=== PATIENT | male | born 1995 | race Caucasian/White ===

== ENCOUNTER → 2018-08-05 12:25 | Outpatient (CLI) | payer BC, SELFPAY ==
[2018-08-05 13:19] VITALS: BP 149/87; PULSE 84; RESP 18; TEMP 36.7; O2SAT 98; BMI 28.9
--- NOTE | 2018-08-05 14:06 | WMO.HTC_ITS ---
Problem List (1) Hemophilia B in male Status: Chronic Subjective Date of Service:: 08/05/18 Chief Complaint: F/u for Hemophilia B. History of Present Illness: 22y.o.man with Hemophilia B, baseline level was 1%. Comes to [facility] for the 1st time. He is on Alprolix weekly. No bleeding episodes noted in the last yr. Health History: Past Medical History (Last Updated 08/05/18 @ 13:13 by Karina Le) Hemophilia B (Acute) Family History (Last Updated 08/05/18 @ 13:15 by Karina Le) Mother Heart disease Grandmother Heart disease Mother Hypertension Allergies/Adverse Reactions: Allergy/AdvReac Type Severity Reaction Status Date / Time aspirin Allergy Severe Unknown Verified 08/05/18 13:17 Risk Factors Social History Smoking Status Former smoker Tobacco Risk Data: Tobacco Risk Smoking Status Former smoker Type of tobacco: Smokeless tobacco usage: Items/Day: Year started: Years used: 1 Counseled to quit/cut down: Reason for no counseling performed: Reason for no pharmacotherapy: Tobacco use comments: Passive smoke exposure: Yes Substance Risk Drug use: No Caffeine use [drinks/day]: 1 Alcohol use: Yes Type of alcohol: occassionally Drinks per day: Has patient felt the need to cut down: 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 been annoyed by complaints: 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 felt guilty about drinking: 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 needed an 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: Comments: Review of Systems Constitutional:: Denies: Fever, Sweats, Weight loss, Appetite change, Chills Cardiovascular:: Denies: Chest pain, Palpitations, Dyspnea on exertion, Orthopnea, PND, Shortness of breath Respiratory: Denies: Cough, Hemoptysis, Shortness of Breath, Wheezing Gastrointestinal:: Denies: Abdominal pain, Nausea, Vomiting, Diarrhea, Constipation, Hematochezia Genitourinary: Denies: Dysuria, Hematuria, 15, Flank pain Musculoskeletal:: Denies: Back pain, Myalgia, Arthralgia Skin: Denies: Rash, Skin Changes, Wounds Neurological:: Denies: Headache, Dizziness, Visual changes, Tinnitus, Hearing loss Psychiatric: Denies: Anxiety, Depression, Homicidal Ideations, Suicidal Ideations Vital Signs Height 5 ft 11 in Weight: 94.075 kg Weight in Pounds 207.4 lbs Pulse Ox 98 Temperature 98.1 F Pulse Rate 84 Respiratory Rate 18 Blood Pressure 149/87 Blood Pressure Position Sitting - Physical Exam General: Alert, Oriented x3, No apparent distress HEENT: Atraumatic, PERRLA, EOMI, Normocephalic Oropharynx:: Dry mucosa Neck:: Supple, Trachea midline. Negative for: JVD, bilateral Cardiac:: Regular rate, Regular rhythm, Normal S1, Normal S2. Negative for: Murmur Lungs: Clear to auscultation, Excusion symmetrical. Negative for: Rhonchi, Wheezes Abdomen:: Bowel sounds x 4, Soft, Non-tender, Non-distended. Negative for: Hepatosplenomegaly Extremities:: Negative for: Cyanosis, Edema Neurological: Neuro grossly intact Skin:: Negative for: Lesions, Rash, Petechiae, Ecchymosis Psychiatric:: Appropriate affect, Euthymic Lymphatics:: Negative for: Cervical lymphadenopathy, Supraclavicular lymphadenopathy, Axillary lymphadenopathy Therapy ROM Screening - Subjective Subjective:: factor weekly -. states no concerns - Objective Right shoulder flex:: 155 Left shoulder flex:: 155 Right shoulder extension:: 50 Left shoulder extension:: 50 Right elbox flex/ext:: 140/0 Left elbox flex/ext:: 140/0 Right elbow circumference:: 31cm Left elbow circumference:: 30cm Right forearm sup/pron:: WNL Left forearm sup/pron:: WNL Right knee flexion:: 120 Left knee flexion:: 120 Right knee circumference:: 42cm Left knee circumference:: 42cm Right ankle dorsiflexion:: 20 Left ankle dorsiflexion:: 20 Right ankle Plan-flex:: 45 Left ankle Plan-flex:: 45 Right ankle circumference:: NT boots on Left ankle circumference:: NT boots on Right hip flexion:: 90 Left hip flexion:: 90 Right hip extension:: 15 Left hip extension:: 15 - Assessment Assessment:: PT demo all ROM WNL- no concerns at this time Assessment and Plan Hemophilia B, clinically stable. Plan is to continue Alprolix weekly. To call if new problems arise. RTC 1 yr. Primary Care Provider: YANCY Grissom Referring Provider: Angel Martel MD
== END ==
PROVIDERS: Family Provider Nurse Practitioner Family; PCP Nurse Practitioner Family; Visit Provider Internal Medicine Medical Oncology
DX: D67 Hereditary factor IX deficiency (principal)

== ENCOUNTER → 2018-08-22 11:40 | Outpatient (CLI) | payer OTHER, BC, SELFPAY ==
--- NOTE | 2018-08-22 11:47 | CT_ITS ---
STUDY: CT ABDOMEN WITH CONTRAST REASON FOR EXAM: Male, 22 years old. Umbilical swelling x4 days RADIATION DOSAGE (If Supplied By Facility): CTDIvol = ( 15.77 ) mGy, DLP = ( 722.51 ) mGycm TECHNIQUE: Transaxial images were obtained post I.V. administration of 100 ml of Isovue 300 contrast, and oral contrast. Sagittal and coronal images were reconstructed. Individualized dose optimization techniques were used for this CT. COMPARISON: None. FINDINGS: The visualized lung bases are unremarkable. The visualized portions of the heart are within normal limits. Normal liver. Normal gallbladder and extrahepatic biliary system. Normal spleen. Normal pancreas. Normal bilateral adrenal glands. Normal right kidney. Normal left kidney. Normal visualized stomach. Visualized small and large bowel are within normal limits. The appendix is visualized and appears normal. Normal abdominal aorta. Normal inferior vena cava. Normal retroperitoneum. Normal abdominal wall. Normal osseous structures. CT/Abdomen WITH IV Contrast IMPRESSION: No acute finding Electronically Signed: Feliz Phillip DO at 12:33 EST Tel , Service support ,
== END ==
PROVIDERS: Family Provider Nurse Practitioner Family; PCP Nurse Practitioner Family; Referring Provider Emergency Medicine; Visit Provider Emergency Medicine
DX: R10.9 Unspecified abdominal pain (principal)
CPT/HCPCS: 74160; Q9967

== ENCOUNTER → 2019-07-28 09:16 | Outpatient (CLI) | payer MEDICAID, SELFPAY ==
[2019-07-28 09:39] VITALS: BP 122/82; PULSE 78; RESP 14; TEMP 36.6; O2SAT 96; BMI 29.5
--- NOTE | 2019-07-28 10:06 | WMO.HTC_ITS ---
Problem List (1) Hemophilia B in male Status: Chronic Subjective Date of Service:: 07/28/19 Chief Complaint: F/u for Hemophilia B. History of Present Illness: 23y.o.man with Hemophilia B, baseline level was 1%. Comes to [place] for follow up. He is on Alprolix weekly. No bleeding episodes noted in the last yr. No dental evaluation in the last yr. Health History: Past Medical History (Last Reviewed 07/28/19 @ 09:38 by Sandra Rubio) Hemophilia B (Acute) Past Surgical History (Last Reviewed 07/28/19 @ 09:38 by Sandra Rubio) No history of previous surgery (Acute) Family History (Last Reviewed 07/28/19 @ 09:38 by Sandra Rubio) Mother Heart disease Grandmother Heart disease Mother Hypertension Social History Social History: No changes Smoking Status Former smoker Allergies/Adverse Reactions: Allergy/AdvReac Type Severity Reaction Status Date / Time aspirin Allergy Severe bleeding Verified 08/05/18 16:02 Risk Factors Social History Social History: No changes Smoking Status Former smoker Tobacco Risk Data: Tobacco Risk Smoking Status Former smoker Type of tobacco: Smokeless tobacco usage: Items/Day: Year started: Years used: Counseled to quit/cut down: Reason for no counseling performed: Reason for no pharmacotherapy: Tobacco use comments: Passive smoke exposure: Substance Risk Drug use: No Caffeine use [drinks/day]: 1 Alcohol use: No Type of alcohol: Drinks per day: Has patient felt the need to cut down: 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 been annoyed by complaints: 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 felt guilty about drinking: 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 needed an 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 mail 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 in 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: Comments: Review of Systems Constitutional:: Denies: Fever, Sweats, Weight loss, Appetite change, Chills Cardiovascular:: Denies: Chest pain, Palpitations, Dyspnea on exertion, O rthopnea, PND, Shortness of breath Respiratory: Denies: Cough, Hemoptysis, Shortness of Breath, Wheezing Gastrointestinal:: Denies: Abdominal pain, Nausea, Vomiting, Diarrhea, Constipation, Hematochezia Genitourinary: Denies: Dysuria, Hematuria, 15, Flank pain Musculoskeletal:: Denies: Back pain, Myalgia, Arthralgia Skin: Denies: Rash, Skin Changes, Wounds Neurological:: Denies: Headache, Dizziness, Visual changes, Tinnitus, Hearing loss Psychiatric: Denies: Anxiety, Depression, Homicidal Ideations, Suicidal Ideations Vital Signs Height 5 ft 10 in Weight: 93.44 kg Weight in Pounds 206.0 lbs Pulse Ox 96 Temperature 98 F Pulse Rate 78 Respiratory Rate 14 Blood Pressure 122/82 Blood Pressure Position Sitting - Physical Exam General: Alert, Oriented x3, No apparent distress HEENT: Atraumatic, PERRLA, EOMI, Normocephalic Oropharynx:: Dry mucosa Neck:: Supple, Trachea midline. Negative for: JVD, bilateral Cardiac:: Regular rate, Regular rhythm, Normal S1, Normal S2. Negative for: Murmur Lungs: Clear to auscultation, Excusion symmetrical. Negative for: Rhonchi, Wheezes Abdomen:: Bowel sounds x 4, Soft, Non-tender, Non-distended. Negative for: Hepatosplenomegaly Extremities:: Negative for: Cyanosis, Edema Neurological: Neuro grossly intact Skin:: Negative for: Lesions, Rash, Petechiae, Ecchymosis Psychiatric:: Appropriate affect, Euthymic Lymphatics:: Negative for: Cervical lymphadenopathy, Supraclavicular lymphadenopathy, Axillary lymphadenopathy Assessment and Plan Hemophilia B on Alprolix weekly. Clinically stable. Plan is to continue Alprolix weekly. RTC 1 yr. Primary Care Provider: DEEPIKA GrissomC Referring Provider: Angel Martel MD
== END ==
PROVIDERS: Family Provider Nurse Practitioner Family; PCP Nurse Practitioner Family; Referring Provider Internal Medicine Hematology & Oncology; Visit Provider Internal Medicine Medical Oncology
DX: D67 Hereditary factor IX deficiency (principal)